=== PATIENT | female | born 2000 | race Caucasian/White ===

== ENCOUNTER 2020-03-26 22:21 | Emergency (ER) | payer OTHER ==
[~2020-03-26] VITALS: Ht 162.6 cm; Wt 54.4 kg
[2020-03-26] MEDS ORDERED: CLARITIN10 M3 PO (22:44)
[2020-03-26] MEDS ORDERED: BIRTH CONTROL (22:44)
[2020-03-27 01:34] VITALS: BP 120/79
== END 2020-03-27 01:35 | disposition home or self-care (01) ==
LOC: M.ERS 22:21
DX: S01.81XA Laceration without foreign body of other part of head, initial encounter (principal); Z79.899 Other long term (current) drug therapy; W01.0XXA Fall on same level from slipping, tripping and stumbling without subsequent striking against object, initial encounter; Y93.E1 Activity, personal bathing and showering; Y92.091 Bathroom in other non-institutional residence as the place of occurrence of the external cause; Y99.9 Unspecified external cause status